=== PATIENT | female | born 1955 | race Native Hawaiian/Other Pacific Islander ===

== ENCOUNTER 2018-09-11 07:40 | Outpatient (CLI) | payer OTHER | END 2018-09-11 07:41 | disposition home or self-care (01) | LOC: C.RADH 07:40 ==

== ENCOUNTER 2018-09-16 07:55 | Outpatient (CLI) | payer OTHER | END 2018-09-16 07:56 | disposition home or self-care (01) | LOC: C.USIC 07:56 | DX: Z12.31 Encounter for screening mammogram for malignant neoplasm of breast (principal); Z13.820 Encounter for screening for osteoporosis; M85.88 Other specified disorders of bone density and structure, other site; K80.20 Calculus of gallbladder without cholecystitis without obstruction; K76.0 Fatty (change of) liver, not elsewhere classified; E04.2 Nontoxic multinodular goiter; K76.89 Other specified diseases of liver ==

== ENCOUNTER 2018-10-30 08:26 | Outpatient (CLI) | payer OTHER | END 2018-10-30 08:27 | disposition home or self-care (01) | LOC: C.MRIC 08:26 ==

== ENCOUNTER 2018-11-01 12:14 | Outpatient (CLI) | payer OTHER | END 2018-11-01 12:15 | disposition home or self-care (01) | LOC: C.MAMMO 12:15 | DX: N64.89 Other specified disorders of breast (principal) ==

== ENCOUNTER 2018-11-30 13:39 | Outpatient (CLI) | payer OTHER | END 2018-11-30 13:40 | disposition home or self-care (01) | LOC: C.LAB 13:39 | DX: Z12.4 Encounter for screening for malignant neoplasm of cervix (principal); Z11.51 Encounter for screening for human papillomavirus (HPV) ==